=== PATIENT | female | born 1960 ===

== ENCOUNTER 2016-12-18 08:29 | Day surgery (SDC) | payer MEDICARE ==
[2016-12-18 09:16] VITALS: BMI 27.3
[2016-12-18] MEDS ORDERED: Midazolam 2 MG/2 ML VIAL ONE (10:17)
[2016-12-18] MEDS ORDERED: Propofol 10 mg/ml Inj (20 ML) ONE ×2 (10:17→10:18)
[2016-12-18] MEDS ORDERED: Lactated Ringer's 500 ML IV ONE (10:44)
--- NOTE | 2016-12-18 11:01 | CP.SDSHP ---
Same Day Surgery H & P - History Proposed Procedure: EGD with biopsy Pre-Op Diagnosis: abdominal pain and dysphagia - Previous Medical/Surgical History Cardiac: ASHD/CAD, Other (Hyperlipidemia) Previous Surgical History: sterilization - Allergies Allergies: Allergies No Known Allergies Allergy (Verified 05/22/16 17:17) - Current Medications Current Medications: reviewed, per reconciliation - Physical Exam General Appearance: wdwn Vital Signs: Vital Signs 12/18/16 09:20 Temperature 98.2 F Pulse Rate 57 L Respiratory 19 Rate Blood Pressure 108/61 O2 Sat by Pulse 97 Oximetry Mental Status: Alert & Oriented x3 Heart: WNL Lungs: WNL GI: WNL - {Optional Preform as Required} Abdomen: WNL - Impression Impression: dysphagia Pt. Evaluated Today:Candidate for Anesthesia & Procedure: Yes - Date & Time Date: 12/18/16 Time: 10:55 Short Stay Discharge - Short Stay Discharge Admitting Diagnosis/Reason for Visit: ESOPHAGEAL REFLUX Disposition: HOME/ ROUTINE
[2016-12-18 11:37] VITALS: TEMP 97.6
[2016-12-18 12:07] VITALS: O2SAT 100
[2016-12-18 12:10] VITALS: BP 130/71; PULSE 54; RESP 18
== END 2016-12-18 12:10 | disposition home or self-care (01) ==
LOC: C.ENDO 08:29
PROVIDERS: ATTEND Internal Medicine Gastroenterology
DX: K20.8 Other esophagitis (principal); K29.60 Other gastritis without bleeding
CPT/HCPCS: 43239; 88305; J2001; J2250; J2704; J7120

== ENCOUNTER 2017-02-19 10:38 | Day surgery (SDC) | payer MEDICARE ==
[2017-02-19 11:31] VITALS: BMI 25.4
--- NOTE | 2017-02-19 13:54 | CP.SDSHP ---
Same Day Surgery H & P - History Proposed Procedure: Colonoscopy Pre-Op Diagnosis: Screening - Previous Medical/Surgical History Cardiac: Other (Cholesterol) Previous Surgical History: sterilization - Allergies Allergies: Allergies No Known Allergies Allergy (Verified 02/19/17 11:31) - Current Medications Current Medications: reviewed - Physical Exam General Appearance: wdwn nad Vital Signs: Vital Signs 02/19/17 11:25 Temperature 98.9 F Pulse Rate 54 L Respiratory 21 Rate Blood Pressure 112/60 O2 Sat by Pulse 98 Oximetry Mental Status: Alert & Oriented x3 Heart: WNL Lungs: WNL GI: WNL - {Optional Preform as Required} Abdomen: WNL - Impression Impression: screening exam Pt. Evaluated Today:Candidate for Anesthesia & Procedure: Yes - Date & Time Date: 02/19/17 Time: 13:54 Short Stay Discharge - Short Stay Discharge Admitting Diagnosis/Reason for Visit: SCREENING Disposition: HOME/ ROUTINE
[2017-02-19] MEDS ORDERED: Propofol 10 mg/ml Inj (20 ML) ONE (13:55)
[2017-02-19] MEDS ORDERED: Midazolam 2 MG/2 ML VIAL ONE (13:56)
[2017-02-19 14:02] VITALS: O2SAT 100
[2017-02-19 14:22] VITALS: TEMP 97.7
[2017-02-19 15:02] VITALS: RESP 16
[2017-02-19 15:12] VITALS: BP 100/46; PULSE 58
== END 2017-02-19 15:11 | disposition home or self-care (01) ==
LOC: C.ENDO 10:38
PROVIDERS: ATTEND Internal Medicine Gastroenterology
DX: K64.8 Other hemorrhoids (principal)
CPT/HCPCS: 45378; J2250; J2704; J3010